=== PATIENT | female | born 1990 | race Caucasian/White ===

== ENCOUNTER 2018-02-04 18:13 | Outpatient (CLI) | payer MEDICAID ==
[2018-02-04 18:38] LABS: ADD MAN DIFF? NO
[2018-02-04 18:39] LABS: WHITE BLOOD COUNT 9.6 10^3/ul (4.8-10.8)
[2018-02-04 18:39] LABS: BASOPHILS % 0.1 % (0.0-2.0); EOSINOPHILS # 0.1 10^3/ul (0.0-0.5); EOSINOPHILS % 0.8 % (0.0-7.0); HEMATOCRIT 36.5 % (37.0-47.0); HEMOGLOBIN 11.8 g/dl (12.0-16.0); LYMPHOCYTES % 21.1 % (15.0-51.0); MEAN CORPUSCULAR HEMOGLOBIN 27.2 pg (29.0-33.0); MEAN CORPUSCULAR HGB CONC 32.3 g/dl (32.0-37.0); MEAN CORPUSCULAR VOLUME 84.1 fl (82.0-101.0); MEAN PLATELET VOLUME 9.5 fl (7.4-10.4); MONOCYTE # 0.8 10^3/ul (0.3-0.9); MONOCYTES % 8.3 % (0.0-11.0); NEUTROPHIL # 6.6 10^3/ul (1.6-7.5); PLATELET COUNT 288 10^3/UL (140-415); RED BLOOD COUNT 4.34 10^6/ul (4.20-5.40); RED CELL DISTRIBUTION WIDTH 13.9 % (11.5-14.5)
[2018-02-04 19:01] LABS: ALANINE AMINOTRANSFERASE 13 IU/L (13-69); ALBUMIN 3.2 g/dl (3.3-4.9); ALBUMIN/GLOBULIN RATIO 0.84; ALKALINE PHOSPHATASE 111 IU/L (42-121); ANION GAP 10 (5-13); ASPARTATE AMINO TRANSFERASE 21 IU/L (15-46); BILIRUBIN,INDIRECT 0.1 mg/dl (0-1.1); BILIRUBIN,TOTAL 0.1 mg/dl (0.2-1.3); BLOOD UREA NITROGEN 6 mg/dl (7-20); CALCIUM 9.6 mg/dl (8.4-10.2); CARBON DIOXIDE 22 mmol/L (21-31); CHLORIDE 103 mmol/L (97-110); CREATININE 0.45 mg/dl (0.44-1.00); Estimated GFR > 60 mL/min (>60); GLUCOSE 95 mg/dl (70-220); POTASSIUM 3.8 mmol/L (3.5-5.1); SODIUM 135 mmol/L (135-144); URIC ACID 2.8 mg/dl (3.1-7.9)
[2018-02-04 19:08] LABS: ADD UMIC YES; UR ASCORBIC ACID 20 mg/dL (NEGATIVE); UR BACTERIA MODERATE /HPF (NONE SEEN); UR BILIRUBIN (Dip) NEGATIVE (NEGATIVE); UR BLOOD (Dip) NEGATIVE (NEGATIVE); UR CLARITY CLOUDY (CLEAR); UR COLOR YELLOW (YELLOW); UR GLUCOSE (Dip) NEGATIVE (NEGATIVE); UR KETONES (Dip) 1+ mg/dL (NEGATIVE); UR LEUKOCYTE ESTERASE (Dip) 3+ Leu/ul (NEGATIVE); UR MUCUS FEW /HPF (NONE SEEN); UR NITRITE (Dip) NEGATIVE (NEGATIVE); UR NONSQUAMOUS EPITHELIAL CELL 1 /HPF (NONE SEEN); UR RBC 6 /HPF (0-5); UR SQUAMOUS EPITHELIAL CELL MANY /HPF (FEW); UR TOTAL PROTEIN (Dip) 1+ mg/dl (NEGATIVE); UR UROBILINOGEN (Dip) NEGATIVE (NEGATIVE); UR WBC 27 /HPF (0-5)
== END 2018-02-04 20:29 | disposition home or self-care (01) ==
LOC: OBT 18:13 → L-D 18:15 → OBT 20:29
DX: O26.893 Other specified pregnancy related conditions, third trimester (principal); R10.12 Left upper quadrant pain; Z3A.33 33 weeks gestation of pregnancy
CPT/HCPCS: 76705; 76817; 76818; 80053; 81001; 84560; 85025

== ENCOUNTER 2018-03-14 07:57 | Outpatient (CLI) | payer MEDICAID ==
[2018-03-14 08:54] LABS: ADD MAN DIFF? NO
[2018-03-14 09:08] LABS: WHITE BLOOD COUNT 7.2 10^3/ul (4.8-10.8)
[2018-03-14 09:08] LABS: BASOPHILS % 0.3 % (0.0-2.0); EOSINOPHILS # 0.1 10^3/ul (0.0-0.5); EOSINOPHILS % 0.8 % (0.0-7.0); HEMATOCRIT 35.8 % (37.0-47.0); HEMOGLOBIN 11.2 g/dl (12.0-16.0); LYMPHOCYTES # 1.5 10^3/ul (0.8-2.9); LYMPHOCYTES % 20.9 % (15.0-51.0); MEAN CORPUSCULAR HEMOGLOBIN 25.2 pg (29.0-33.0); MEAN CORPUSCULAR HGB CONC 31.3 g/dl (32.0-37.0); MEAN CORPUSCULAR VOLUME 80.4 fl (82.0-101.0); MEAN PLATELET VOLUME 9.9 fl (7.4-10.4); MONOCYTE # 0.6 10^3/ul (0.3-0.9); MONOCYTES % 8.6 % (0.0-11.0); NEUTROPHILS % 68.8 % (39.0-77.0); PLATELET COUNT 293 10^3/UL (140-415); RED BLOOD COUNT 4.45 10^6/ul (4.20-5.40); RED CELL DISTRIBUTION WIDTH 15.5 % (11.5-14.5)
[2018-03-14 09:31] LABS: ADD UMIC YES; UR ASCORBIC ACID NEGATIVE (NEGATIVE); UR BACTERIA FEW /HPF (NONE SEEN); UR BILIRUBIN (Dip) NEGATIVE (NEGATIVE); UR BLOOD (Dip) 3+ mg/dL (NEGATIVE); UR CLARITY SLIGHTLY CLOUDY (CLEAR); UR COLOR YELLOW (YELLOW); UR GLUCOSE (Dip) NEGATIVE (NEGATIVE); UR KETONES (Dip) NEGATIVE (NEGATIVE); UR LEUKOCYTE ESTERASE (Dip) 3+ Leu/ul (NEGATIVE); UR MUCUS FEW /HPF (NONE SEEN); UR NITRITE (Dip) NEGATIVE (NEGATIVE); UR RBC 11 /HPF (0-5); UR SPECIFIC GRAVITY (Dip) 1.008 (1.003-1.030); UR SQUAMOUS EPITHELIAL CELL FEW /HPF (FEW); UR TOTAL PROTEIN (Dip) NEGATIVE (NEGATIVE); UR UROBILINOGEN (Dip) NEGATIVE (NEGATIVE); UR WBC 14 /HPF (0-5)
== END 2018-03-14 11:25 | disposition home or self-care (01) ==
LOC: OBT 07:57 → L-D 07:57 → OBT 11:25
DX: O62.9 Abnormality of forces of labor, unspecified (principal); Z3A.38 38 weeks gestation of pregnancy
CPT/HCPCS: 76815; 76818; 81001; 85025

== ENCOUNTER 2018-03-15 04:08 | Inpatient (IN) | payer MEDICAID ==
[2018-03-15] MEDS ORDERED: LACTATED RINGER'S 1,000 ML IV (07:31)
[2018-03-15 07:37] LABS: ADD MAN DIFF? NO
[2018-03-15 07:40] LABS: BASOPHILS % 0.3 % (0.0-2.0); EOSINOPHILS % 0.5 % (0.0-7.0); HEMATOCRIT 35.9 % (37.0-47.0); HEMOGLOBIN 11.4 g/dl (12.0-16.0); LYMPHOCYTES # 1.4 10^3/ul (0.8-2.9); LYMPHOCYTES % 18.2 % (15.0-51.0); MEAN CORPUSCULAR HEMOGLOBIN 25.3 pg (29.0-33.0); MEAN CORPUSCULAR HGB CONC 31.8 g/dl (32.0-37.0); MEAN CORPUSCULAR VOLUME 79.8 fl (82.0-101.0); MONOCYTE # 0.6 10^3/ul (0.3-0.9); MONOCYTES % 7.8 % (0.0-11.0); NEUTROPHIL # 5.7 10^3/ul (1.6-7.5); NEUTROPHILS % 72.6 % (39.0-77.0); PLATELET COUNT 293 10^3/UL (140-415); RED CELL DISTRIBUTION WIDTH 15.3 % (11.5-14.5)
[2018-03-15 07:40] LABS: WHITE BLOOD COUNT 7.9 10^3/ul (4.8-10.8)
[2018-03-15 08:00] LABS: INR 0.86; PROTIME 11.8 Sec (11.9-14.9); PT RATIO 0.9
[2018-03-15] MEDS ORDERED: MISOPROSTOL 200 MCG TAB PR (08:00)
[2018-03-15] MEDS ORDERED: IBUPROFEN 600 MG TAB PO (08:00)
[2018-03-15] MEDS ORDERED: CARBOPROST 250 MCG INJ IM (08:00)
[2018-03-15] MEDS ORDERED: OXYTOCIN 30 UNITS/LR 500 ML IV (08:00)
[2018-03-15] MEDS: AMPICILLIN 2 GM/NS (PMX) 100 ML IV (08:17)
[2018-03-15] MEDS: LACTATED RINGER'S 1,000 ML IV ×3 (08:17→23:31)
[2018-03-15] MEDS: AMPICILLIN 1 GM/NS (PMX) 50 ML IV ×3 (15:13→20:49)
[2018-03-15] MEDS: BUTORPHANOL 2 MG INJ IV ×2 (15:14→20:46)
[2018-03-15 20:31] LABS: RAPID PLASMA REAGIN NONREACTIVE (NR)
[2018-03-15] MEDS ORDERED: LIDOCAINE 1% (MPF) 30 ML INJ (22:05)
[2018-03-15] MEDS ORDERED: MINERAL OIL LIGHT 10 ML VIAL (22:05)
[2018-03-15] MEDS: OXYTOCIN 30 UNITS/LR 500 ML IV ×2 (23:00→23:11)
[2018-03-15] MEDS: LIDOCAINE 1% (MPF) 30 ML INJ INJ (23:00)
[2018-03-15] MEDS: METHYLERGONOVINE 0.2 MG INJ IM (23:03)
[2018-03-15 23:12] LABS: HEPATITIS B SURFACE ANTIGEN NEGATIVE (NEGATIVE)
[2018-03-16] MEDS: AMPICILLIN 1 GM/NS (PMX) 50 ML IV
[2018-03-16] MEDS: LACTATED RINGER'S 1,000 ML IV* (05:19)
[2018-03-16] MEDS ORDERED: MISOPROSTOL 200 MCG TAB PR (05:30)
[2018-03-16] MEDS ORDERED: HYDROCODONE/APAP (5/325) TAB PO (05:30)
[2018-03-16] MEDS ORDERED: ACETAMINOPHEN 325 MG TAB PO (05:30)
[2018-03-16] MEDS ORDERED: OXYTOCIN 30 UNITS/LR 500 ML IV (05:30)
[2018-03-16] MEDS ORDERED: METHYLERGONOVINE 0.2 MG INJ IM (05:30)
[2018-03-16] MEDS ORDERED: DIBUCAINE 1% 30 GM OINT TOP (05:30)
[2018-03-16] MEDS ORDERED: CARBOPROST 250 MCG INJ IM (05:30)
[2018-03-16] MEDS: IBUPROFEN 600 MG TAB PO ×3 (05:49→17:30)
[2018-03-16] MEDS: LANOLIN 7 GM TUBE TOP (05:50)
[2018-03-16] MEDS: BENZOCAINE 20% 56 ML SPRAY TOP (05:50)
[2018-03-16] MEDS: WITCH HAZEL/GLYCERIN PAD PR (05:50)
[2018-03-16 08:24] LABS: ADD MAN DIFF? NO
[2018-03-16 08:29] LABS: BASOPHILS % 0.1 % (0.0-2.0); HEMATOCRIT 31.7 % (37.0-47.0); HEMOGLOBIN 10.1 g/dl (12.0-16.0); LYMPHOCYTES # 1.7 10^3/ul (0.8-2.9); LYMPHOCYTES % 14.2 % (15.0-51.0); MEAN CORPUSCULAR HEMOGLOBIN 25.3 pg (29.0-33.0); MEAN CORPUSCULAR HGB CONC 31.9 g/dl (32.0-37.0); MEAN CORPUSCULAR VOLUME 79.4 fl (82.0-101.0); MONOCYTE # 0.8 10^3/ul (0.3-0.9); MONOCYTES % 6.6 % (0.0-11.0); NEUTROPHIL # 9.4 10^3/ul (1.6-7.5); NEUTROPHILS % 78.6 % (39.0-77.0); PLATELET COUNT 290 10^3/UL (140-415); RED BLOOD COUNT 3.99 10^6/ul (4.20-5.40); RED CELL DISTRIBUTION WIDTH 15.4 % (11.5-14.5)
[2018-03-16] MEDS: SENNA/DOCUSATE NA (8.6MG/50MG) TAB PO ×2 (11:48→21:22)
[2018-03-17] MEDS: IBUPROFEN 600 MG TAB PO ×3 (00:22→12:19)
[2018-03-17] MEDS: DIPHTH/TET/ACEL PERTUSS (ADULT) 0.5 ML VIAL IM* (09:00)
[2018-03-17] MEDS: SENNA/DOCUSATE NA (8.6MG/50MG) TAB PO (09:07)
== END 2018-03-17 13:07 | disposition home or self-care (01) | DRG 807 ==
LOC: OBT 04:08 → PP1 03-16 02:22 → L-D 04:08 → OBT 08:06 → L-D 07:15
PROVIDERS: Obstetrics & Gynecology
PROC: 10E0XZZ Delivery of Products of Conception, External Approach (ICD-10-PCS; principal; 2018-03-15)
PROC: 0KQM0ZZ Repair Perineum Muscle, Open Approach (ICD-10-PCS; 2018-03-15)
DX: O70.1 Second degree perineal laceration during delivery (principal); Z37.0 Single live birth; Z3A.38 38 weeks gestation of pregnancy
CPT/HCPCS: 76815; 76818; 81001; 85025; 85610; 85730; 86592; 86850; 86900; 86901; 87340